=== PATIENT | female | born 1955 | race Caucasian/White ===

== ENCOUNTER 2023-01-25 07:16 | Day surgery (SDC) | payer OTHER ==
[~2023-01-25] VITALS: Ht 149.9 cm; Wt 149.7 kg
[~2023-01-25 07:16] MED LIST: SODIUM CHLORIDE 0.9% 1,000 ML IV ONE; SODIUM CHLORIDE 0.9% 1,000 ML ONE
[2023-01-25] MEDS ORDERED: GABA-1181 PO (07:45)
[2023-01-25 07:46] LABS: COVID AG,FIA SOURCE NASAL SWAB
[2023-01-25] MEDS ORDERED: HYDR-4870 PO (07:46)
[2023-01-25] MEDS ORDERED: LINA145C PO (07:46)
[2023-01-25] MEDS ORDERED: SIMV-259 PO (07:47)
[2023-01-25] MEDS ORDERED: CITA-144 PO (07:48)
[2023-01-25 08:41] LABS: GLUCOMETER DEV NAME(LOC) SDS.; GLUCOSE,POINT OF CARE 125 MG/DL (70-110)
[2023-01-25] MEDS ORDERED: OXYGEN THERAPY IH SCH (20:00)
== END 2023-01-25 10:45 | disposition home or self-care (01) ==
LOC: SURGERY 07:16
PROVIDERS: ATTEND Specialist
DX: Z12.11 Encounter for screening for malignant neoplasm of colon (principal); G47.33 Obstructive sleep apnea (adult) (pediatric); E78.00 Pure hypercholesterolemia, unspecified; E66.9 Obesity, unspecified; I10 Essential (primary) hypertension; J45.909 Unspecified asthma, uncomplicated; E11.9 Type 2 diabetes mellitus without complications; Z20.822 Contact with and (suspected) exposure to COVID-19; Z88.0 Allergy status to penicillin
CPT/HCPCS: G0121 ×5; 82962; J7030